=== PATIENT | female | born 1965 | race Caucasian/White ===

== ENCOUNTER → 2021-05-06 | Outpatient (CLI) | payer OTHER ==
[~2021-05-06] MED LIST: ACET325T26 PO; COLC0.6C3 PO; FLEC50TA25 PO; LIDOCAINE 2%, 20ML ONE; METO25TA35 PO; OMNIPAQUE 350 MG/ML, 150 ML BOTTLE ONE; ONDANSETRON 2MG/ML, 2ML ONE; PANT20TA4 PO
== END | disposition home or self-care (01) ==
LOC: CFH 08:20
PROVIDERS: ATTEND Internal Medicine Clinical Cardiac Electrophysiology
DX: I48.0 Paroxysmal atrial fibrillation (principal)
CPT/HCPCS: 75572; Q9967

== ENCOUNTER 2021-05-08 10:29 | Observation (INO) | payer OTHER ==
[~2021-05-08] VITALS: Ht 172.7 cm; Wt 89.0 kg
[2021-05-08] MEDS ORDERED: FENTANYL PF 250 MCG/5ML ONE (11:32)
[2021-05-08] MEDS ORDERED: MIDAZOLAM 1 MG/ML, 2ML ONE (11:32)
[2021-05-08 11:56] VITALS: BP 125/84
[2021-05-08] MEDS ORDERED: SODIUM CHLORIDE 0.9% 1,000 ML IV SCH (12:00)
[2021-05-08] MEDS ORDERED: FLEC50TA25 PO (12:24)
[2021-05-08 12:25] LABS: BASOPHILS % (AUTO) 1 % (0-1); EOSINOPHILS % (AUTO) 3 % (1-7); LYMPHOCYTES % (AUTO) 38 % (22-44); MEAN CORPUSCULAR HEMOGLOBIN 32.7 pg (27.0-34.8); MEAN CORPUSCULAR HGB CONC 34.1 g/dL (32.4-35.8); MEAN PLATELET VOLUME 7.5 fL (7.4-10.4); MONOCYTES % (AUTO) 8 % (2-9); NEUTROPHILS % (AUTO) 51 % (42-75); PLATELET COUNT 177 x10^3/uL (130-400); RED BLOOD COUNT 3.87 x10^6/uL (3.82-5.3); RED CELL DISTRIBUTION WIDTH 13.2 % (9.6-15.2)
[2021-05-08] MEDS ORDERED: METO25TA35 PO (12:31)
[2021-05-08 12:37] LABS: ANION GAP 6 mmol/L (5-15); CALCIUM 8.7 mg/dL (8.5-10.1); CHLORIDE 112 mmol/L (98-107)
[2021-05-08 12:38] LABS: CREATININE 0.75 mg/dL (0.55-1.02)
[2021-05-08] MEDS ORDERED: PROPOFOL 10 MG/ML, 20ML ONE (13:21)
[2021-05-08] MEDS ORDERED: ROCURONIUM 10MG/ML,5ML ONE (13:21)
[2021-05-08] MEDS ORDERED: SUCCINYLCHOLINE 20 MG/ML, 10ML ONE (13:21)
[2021-05-08] MEDS ORDERED: HEPARIN 1,000 UNITS/ML, 10ML ONE ×2 (13:21)
[2021-05-08] MEDS ORDERED: DEXAMETHASONE 4 MG/ML, 1ML ONE (13:22)
[2021-05-08] MEDS ORDERED: ONDANSETRON 2MG/ML, 2ML ONE (13:22)
[2021-05-08] MEDS ORDERED: PHENYLEPHRINE 10 MG/ML ONE (14:03)
[2021-05-08] MEDS ORDERED: DIPHENHYDRAMINE 50 MG/ML, 1ML IVPush PRN ×3 (15:00→16:00)
[2021-05-08] MEDS ORDERED: ACETAMINOPHEN 325 MG TABLET PO PRN ×2 (15:00→16:00)
[2021-05-08] MEDS ORDERED: OXYcodone 5 MG/5 ML ORAL.SOL UDC PO PRN ×2 (15:00→16:00)
[2021-05-08] MEDS ORDERED: ONDANSETRON 2MG/ML, 2ML IVPush PRN ×3 (15:00→16:00)
[2021-05-08] MEDS ORDERED: EPHEDRINE 50 MG/ML, 1ML IM PRN (15:00)
[2021-05-08] MEDS ORDERED: LABETALOL 5MG/ML, 20ML IV PRN ×2 (15:00→16:00)
[2021-05-08] MEDS ORDERED: MEPERIDINE/PF 25MG/0.5ML IVPush PRN ×2 (15:00→16:00)
[2021-05-08] MEDS ORDERED: PROMETHAZINE 25 MG/ML, 1ML IVPush PRN ×2 (15:00→16:00)
[2021-05-08] MEDS ORDERED: FENTANYL PF 100 MCG/2ML IV PRN ×2 (15:00→16:00)
[2021-05-08] MEDS ORDERED: EPHEDRINE 50 MG/ML, 1ML IVPush PRN ×2 (15:00→16:00)
[2021-05-08] MEDS ORDERED: DIAZEPAM 5 MG/ML, 2ML IVPush PRN ×2 (15:00→16:00)
[2021-05-08] MEDS ORDERED: morphine SULFATE 10 MG/ML, 1ML IVPush PRN (15:00)
[2021-05-08] MEDS ORDERED: LORazepam 2 MG/ML, 1ML IVPush PRN (16:00)
[2021-05-08] MEDS ORDERED: PROMETHAZINE 12.5 MG SUPP PR PRN (16:00)
[2021-05-08] MEDS ORDERED: ALBUTEROL SULFATE 2.5 MG/3 ML NPPB PRN (16:00)
[2021-05-08] MEDS ORDERED: MIDAZOLAM 1 MG/ML, 2ML IV PRN (16:00)
[2021-05-08] MEDS ORDERED: hydrALAzine 20 MG/ML, 1ML IV PRN (16:00)
[2021-05-08] MEDS ORDERED: HYDROmorphone 1 MG/ML, 1ML INJ IVPush PRN (16:00)
[2021-05-08] MEDS: RIVAROXABAN 20 MG TABLET PO SCH (16:15)
[2021-05-08 18:32] VITALS: BP 124/83
[2021-05-08] MEDS: COLCHICINE 0.6 MG CAPSULE PO SCH (20:26)
[2021-05-08] MEDS: FLECAINIDE 50MG TABLET PO SCH (20:27)
[2021-05-08] MEDS ORDERED: ZOLPIDEM 5MG TABLET PO PRN (21:00)
[2021-05-09 02:00] VITALS: BP 104/70
[2021-05-09] MEDS ORDERED: PANTOPRAZOLE 20MG TABLET PO SCH (06:00)
[2021-05-09] MEDS ORDERED: RIVAROXABAN 20 MG TABLET PO SCH (08:00)
[2021-05-09] MEDS ORDERED: PANT20TA4 PO (08:35)
[2021-05-09] MEDS ORDERED: ACET325T26 PO (08:35)
[2021-05-09] MEDS ORDERED: COLC0.6C3 PO (08:35)
[2021-05-09] MEDS ORDERED: METOPROLOL TARTRATE 25 MG TAB PO SCH (09:00)
[2021-05-09 09:06] VITALS: BP 95/62
[2021-05-09] MEDS: RIVAROXABAN 20 MG TABLET PO SCH (09:12)
[2021-05-09] MEDS: FLECAINIDE 50MG TABLET PO SCH (09:12)
[2021-05-09] MEDS: COLCHICINE 0.6 MG CAPSULE PO SCH (09:12)
[2021-05-09] MEDS ORDERED: KETOROLAC 30 MG/1 ML IVPush ONE (12:30)
== END 2021-05-09 13:23 | disposition home or self-care (01) ==
LOC: CACL 10:29 → ORIP 16:16 → 5SO 17:26
PROVIDERS: ADMIT Internal Medicine Clinical Cardiac Electrophysiology; ATTEND Internal Medicine Clinical Cardiac Electrophysiology
DX: I48.0 Paroxysmal atrial fibrillation (principal); Z20.822 Contact with and (suspected) exposure to COVID-19; I48.92 Unspecified atrial flutter; Z79.899 Other long term (current) drug therapy
CPT/HCPCS: 36415; 80048; 85025; 85347; 93005; 93306; 93312; 93321; 93325; 93613; 93655; 93656; 93657; 93662; 96374; C1730; C1732; C1759; C1766; C1894; G0378; J0330; J1100; J1644; J1885; J2250; J2370; J2405; J2704; J3010; J3490; U0003; U0005